=== PATIENT | female | born 1945 ===

== ENCOUNTER → 2021-09-16 11:00 | Outpatient (ROUT) | payer MEDICARE, OTHER, MEDICAID, SELFPAY ==
[2021-09-16 11:21] LABS: Cholesterol 150 mg/dL (140-199); HDL Cholesterol 58 mg/dL (40-60); LDL Cholesterol Calculated 72 mg/dL (<100); Triglycerides 98 mg/dL (35-150)
== END ==
PROVIDERS: Family Provider Family Medicine; PCP Physician Assistant Medical; Visit Provider Emergency Medicine
DX: I50.23 Acute on chronic systolic (congestive) heart failure (principal); I25.5 Ischemic cardiomyopathy; R07.9 Chest pain, unspecified
CPT/HCPCS: 80061

== ENCOUNTER → 2021-10-23 12:58 | Outpatient (CLI) | payer MEDICARE, OTHER, MEDICAID, SELFPAY ==
--- NOTE | 2021-10-23 | DI.ECHO.S_ITS ---
[facility] +---------+ : : [address] : [address] [place] : : : : [id number] : : : : Phone: [phone]+ Echocardiogram Report + + :Name: SHUN OATES Study Date: 10/23/2021 Height: 67 in : :[facility] ReadingLocation: Weight: 109 lb: : Gender: Female BSA: 1.6 m2 : :: 1945 Age: 75 yrs BP: 86/53 mmHg: :Reason For Study: Chronic systolic HF : :Ordering Physician: MONTSE, : :MARIO Performed By: Mena Levine : :Referring: MARIO PICKENS : + + Interpretation Summary The left ventricle is severely dilated. Left ventricular systolic function is severely reduced. The ejection fraction is estimated to be 15-20%. There is severe hypokinesis to akinesis along the apex, inferoseptal, inferior, most of anterior segments. The inferolateral and anterolateral have the most preserved augmentation. Diastolic function could not be accurately assessed due to contradictory data. Right ventricular systolic function is at the lower limits of normal. The right ventricular systolic pressure is estimated to be at least 31 mmHg based on an estimated right atrial pressure of 3 mm Hg. The right ventricle is mildly dilated. The left atrium is moderately dilated. The right atrium is borderline dilated. There is no significant valvular heart disease. The aortic root is normal size. Procedure: A two-dimensional transthoracic echocardiogram with color flow and Doppler was performed. The study quality was technically adequate. There is no prior echocardiogram noted for this patient. The patient was in normal sinus rhythm during the exam. Left Ventricle: The left ventricle is severely dilated. Left ventricular systolic function is severely reduced. The ejection fraction is estimated to be 15-20%. There is severe global hypokinesis of the left ventricle. There is severe hypokinesis to akinesis along the apex, inferoseptal, inferior, most of anterior segments. The inferolateral and anterolateral have the most preserved augmentation. Diastolic function could not be accurately assessed due to contradictory data. Right Ventricle: The right ventricle is mildly dilated. Right ventricular systolic function is at the lower limits of normal. Atria: The left atrium is moderately dilated. The right atrium is borderline dilated. There is no Doppler evidence for an interatrial shunt. Mitral Valve: The mitral valve leaflets appear borderline thickened, but open well. There is mild mitral regurgitation. Aortic Valve: The aortic valve is trileaflet. The aortic valve opens well. No aortic regurgitation is present. Tricuspid Valve: The tricuspid valve is normal in structure and function. There is trace tricuspid regurgitation. The right ventricular systolic pressure is estimated to be at least 31 mmHg based on an estimated right atrial pressure of 3 mm Hg. Pulmonic Valve: The pulmonic valve leaflets are thin and pliable; valve motion is normal. There is a trace or physiologic amount of pulmonic regurgitation. There is no significant valvular heart disease. Great Vessels: The aortic root is normal size. The ascending aorta is normal in size. The pulmonary artery is normal size. The IVC is of normal diameter and collapses greater than 50% with a sniff. This suggests a low right atrial pressure of 3 mm Hg. Pericardium/ Pleura There is no pericardial effusion. MMode/2D Measurements & Calculations LVIDd: 6.3 cm LVOT diam: 2.0 cm LVIDs: 4.6 cm Ao root diam: 3.3 cm FS: 26.4 % asc Aorta Diam: 3.4 cm IVSd: 0.65 cm LVPWd: 0.74 cm LV gunn. diameter/BSA (cm/m^2): 4.0 LV sys. diameter/BSA (cm/m^2): 3.0 LA A2 area: 23.4 cm2 RA long axis: 4.3 cm LA A4 area: 17.9 cm2 RA area: 14.7 cm2 LA length (vol): 4.9 cm RA vol: 42.6 ml LA vol: 73.3 ml RA : 27.3 ml/m2 LA vol index: 46.9 ml/m2 IVC diam: 1.8 cm RVD1 (basal): 4.3 cm TAPSE: 1.8 cm Doppler Measurements & Calculations Ao V2 max: 109.1 cm/sec LVOT Max Yovany: 63.3 cm/sec Ao V2 mean: 74.5 cm/sec LV V1 max P.6 mmHg Ao max P.8 mmHg LV V1 VTI: 13.5 cm Ao mean P.5 mmHg MONSERRAT(I,D): 1.9 cm2 Ao V2 VTI: 22.7 cm MONSERRAT(V,D): 1.9 cm2 sev ratio: 0.59 MONSERRAT indexed to BSA (cm^2/m^2): 1.2 MV E max yovany: 37.6 cm/sec TR max yovany: 265.3 cm/sec MV A max yovany: 94.2 cm/sec TR max P.2 mmHg MV E/A: 0.40 Med Peak E' Yovany: 2.0 cm/sec E/E' med: 18.8 Lat Peak E' Yovany: 1.9 cm/sec E/E' lat: 19.8 E/e' average: 19.3 MV P1/2t: 62.7 msec MV P1/2t max yovany: 37.6 cm/sec SV(LVOT): 43.5 ml MVA(P1/2t): 3.5 cm2 Reading Physician:05:08 PM
== END ==
PROVIDERS: Family Provider Family Medicine; Referring Provider Internal Medicine Cardiovascular Disease; Visit Provider Internal Medicine Cardiovascular Disease
DX: I50.22 Chronic systolic (congestive) heart failure (principal); I34.0 Nonrheumatic mitral (valve) insufficiency
CPT/HCPCS: 93306

== ENCOUNTER → 2021-12-25 10:45 | Outpatient (CLI) | payer MEDICARE, MEDICAID, SELFPAY ==
[2021-12-25 18:45] LABS: Add Manual Diff / Slide Review NO; Basophils Absolute Auto 100 /uL (0-100); Eosinophils Absolute Auto 400 /uL (0-450); Hematocrit 35.3 % (36-46); Hemoglobin 12.1 g/dL (12.0-16.0); Lymphocytes Absolute Auto 2300 /uL (1100-4500); Lymphocytes Percent Auto 30.4 % (25-40); Mean Corpuscular HGB Conc 34.2 % (30-36); Mean Corpuscular Hemoglobin 32.4 PG (26-34); Mean Corpuscular Volume 94.8 fL (80-100); Monocytes Absolute Auto 700 /uL (0-900); Monocytes Percent Auto 8.9 % (3-14); Neutrophils Absolute Auto 4100 /uL (1500-7000); Neutrophils Percent Auto 54.7 % (50-75); Platelet Count 207 X10^3/uL (150-400); Red Blood Cell Count 3.72 X10^6/uL (4.0-5.2); Red Cell Distribution Width 14.1 % (11.6-14.8); White Blood Cell Count 7.5 X10^3/uL (4.5-11.0)
[2021-12-25 19:02] LABS: Alanine Aminotransferase 30 IU/L (<35); Albumin 4.2 g/dL (3.5-5.0); Albumin Globulin Ratio 1.4 (1.0-2.8); Alkaline Phosphatase 74 U/L (38-126); Aspartate Aminotransferase 33 IU/L (14-36); BUN Creatinine Ratio 31.1 (6-22); Bilirubin Total 0.7 mg/dL (0.2-1.3); Blood Urea Nitrogen 38 mg/dL (7-17); Calcium 9.2 mg/dL (8.4-10.2); Carbon Dioxide 24 mmol/L (22-32); Chloride 104 mmol/L (98-107); Cholesterol 137 mg/dL (140-199); Estimated Glomerular Filt Rate 45 mL/min (>60); Globulin 2.9 g/dL (1.7-4.1); Glucose 100 mg/dL (80-110); HDL Cholesterol 63 mg/dL (40-60); HEMOLYSIS < 15 (0-50); LDL Cholesterol Calculated 53 mg/dL (<100); Sodium 137 mmol/L (137-145); Total Protein 7.1 g/dL (6.3-8.2); Triglycerides 107 mg/dL (35-150)
[2021-12-25 19:09] LABS: NT-proBNP (BNP-Adult 18+) 3740 pg/mL (<450)
[2021-12-25 19:18] LABS: Potassium 5.4 mmol/L (3.4-5.1)
== END ==
PROVIDERS: Family Provider Family Medicine; PCP Family Medicine; Visit Provider Family Medicine
DX: E78.2 Mixed hyperlipidemia (principal); I11.0 Hypertensive heart disease with heart failure; I50.9 Heart failure, unspecified; I25.2 Old myocardial infarction; Z79.891 Long term (current) use of opiate analgesic; M79.604 Pain in right leg
CPT/HCPCS: 80053; 80061; 83880; 85025

== ENCOUNTER → 2022-02-17 10:43 | Outpatient (CLI) | payer MEDICARE, MEDICAID, SELFPAY ==
[2022-02-17 20:55] LABS: NT-proBNP (BNP-Adult 18+) 3180 pg/mL (<450)
== END ==
PROVIDERS: Family Provider Family Medicine; PCP Family Medicine; Visit Provider Family Medicine
DX: I50.9 Heart failure, unspecified (principal)
CPT/HCPCS: 83880

== ENCOUNTER 2022-05-25 18:39 | Emergency (ER) | payer MEDICARE, MEDICAID, SELFPAY ==
[2022-05-25 19:00] VITALS: BP 112/60; PULSE 87; RESP 18; TEMP 35.7; O2SAT 98; BMI 14.2
[2022-05-25 20:46] LABS: Add Manual Diff / Slide Review NO; Basophils Absolute Auto 100 /uL (0-100); Basophils Percent Auto 1.1 % (0-2); Eosinophils Absolute Auto 100 /uL (0-450); Eosinophils Percent Auto 0.8 % (2-4); Hemoglobin 12.5 g/dL (12.0-16.0); Lymphocytes Absolute Auto 2100 /uL (1100-4500); Lymphocytes Percent Auto 20.5 % (25-40); Mean Corpuscular HGB Conc 33.9 % (30-36); Mean Corpuscular Hemoglobin 33.5 PG (26-34); Monocytes Absolute Auto 700 /uL (0-900); Neutrophils Absolute Auto 7300 /uL (1500-7000); Neutrophils Percent Auto 70.6 % (50-75); Platelet Count 339 X10^3/uL (150-400); Red Blood Cell Count 3.73 X10^6/uL (4.0-5.2); Red Cell Distribution Width 13.9 % (11.6-14.8); White Blood Cell Count 10.3 X10^3/uL (4.5-11.0)
[2022-05-25 20:58] LABS: Lactate (Lactic Acid) 1.7 mmol/L (0.7-2.1)
[2022-05-25 20:59] LABS: Alanine Aminotransferase 21 IU/L (<35); Albumin 4.6 g/dL (3.5-5.0); Albumin Globulin Ratio 1.3 (1.0-2.8); Alkaline Phosphatase 61 U/L (38-126); Aspartate Aminotransferase 32 IU/L (14-36); BUN Creatinine Ratio 29.1 (6-22); Bilirubin Total 0.6 mg/dL (0.2-1.3); Blood Urea Nitrogen 60 mg/dL (7-17); Calcium 9.2 mg/dL (8.4-10.2); Carbon Dioxide 18 mmol/L (22-32); Chloride 103 mmol/L (98-107); Estimated Glomerular Filt Rate 24 mL/min (>60); Globulin 3.5 g/dL (1.7-4.1); Glucose 98 mg/dL (80-110); HEMOLYSIS 73 (0-50); Lipase 238 U/L (23-300); Potassium 4.2 mmol/L (3.4-5.1); Sodium 136 mmol/L (137-145); Total Protein 8.1 g/dL (6.3-8.2)
[2022-05-26] VITALS (15 sets, daily range): BP systolic 85–117; BP diastolic 49–59; PULSE 81–97; RESP 16; TEMP 36.7; O2SAT 96–100
[2022-05-26] MEDS: LACTATED RINGERS 1,000 ML 1000 ML IV ×2 (02:35→05:09)
--- NOTE | 2022-05-26 02:40 | ED.WEAKNESS ---
HPI - Weakness <Keiko Tony, DO - Last Filed: 05/27/22 03:10> General Chief complaint: Weakness Stated complaint: Diarrhea X 2 weeks, weakness Time Seen by Provider: 05/26/22 02:31 Source: patient Mode of arrival: Wheelchair History of Present Illness HPI Narrative: Patient is a 76-year-old female history of coronary artery disease with stents a presenting today with generalized weakness and diarrhea for the last 19 days. Says she really has had significant decreased appetite. She has no nausea or vomiting no real stomach pain. She has not been on antibiotics. She states that she has 1 episode of diarrhea daily. Denies any chest pain palpitations dizziness passing out fever or chills. Related Data Home Medications Medication Instructions Recorded Confirmed aspirin 81 mg tablet,delayed 81 mg PO DAILY 11/20/21 11/20/21 release (Adult Low Dose Aspirin) melatonin 10 mg capsule 20 mg PO DAILY 11/20/21 11/20/21 Previous Rx's Medication Instructions Recorded albuterol sulfate 90 mcg/actuation 2 puff inhalation Q4H PRN 11/20/21 aerosol inhaler (Ventolin HFA) shortness of breath or wheezing #8.5 grams atorvastatin 40 mg tablet 40 mg PO BEDTIME #90 tabs 12/04/21 clopidogrel 75 mg tablet 75 mg PO DAILY #90 tabs 12/07/21 metoprolol tartrate 25 mg tablet 25 mg PO DAILY #90 tabs 12/07/21 ferrous sulfate 325 mg (65 mg 325 mg PO DAILY anemia #90 tabs 12/18/21 iron) tablet,delayed release albuterol sulfate 90 mcg/actuation 2 puff inhalation Q4-6H PRN 01/29/22 aerosol inhaler (Ventolin HFA) shortness of breath or wheezing #8.5 grams lisinopril 2.5 mg tablet 2.5 mg PO DAILY Hypertension #90 02/15/22 tabs carvedilol 12.5 mg tablet 12.5 mg PO BID #120 tabs 03/18/22 fluoxetine 40 mg capsule 40 mg PO DAILY #90 caps 03/19/22 trazodone 50 mg tablet See Rx Instructions .Route 03/23/22 .COMPLEX #60 tabs spironolactone 25 mg tablet See Rx Instructions .Route 04/08/22 .COMPLEX #60 tabs cilostazol 50 mg tablet 50 mg PO BID PVD #60 tabs 04/22/22 Allergies Allergy/AdvReac Type Severity Reaction Status Date / Time Penicillins [PENICILLINS] Allergy Unknown Verified 11/20/21 09:24 Review of Systems <Keiko Jimenez DO - Last Filed: 05/27/22 03:10> Review of Systems Narrative: GENERAL: Denies chills, fatigue, malaise, fever, sweats, travel HEENT: Denies sinus pain, ear pain, sore throat, difficulty swallowing, neck pain RESPIRATORY: Denies dyspnea, cough, wheezing, hemoptysis, sputum. CARDIOVASCULAR: Denies chest pain, palpitations, orthopnea, edema GASTROINTESTINAL: See HPI : Denies dysuria, frequency, incontinence, hematuria, urinary retention, flank pain. MUSCULOSKELETAL: Denies weakness, joint pain, or bony pain SKIN: No rash, no erythema, no pruritus NEUROLOGIC: Denies weakness, dizziness, headache, numbness, change in speech, confusion PSYCHIATRIC: No concerning psychosocial issues. 12 point review of systems is negative except for those stated above and HPI Patient History <Keiko Jimenez DO - Last Filed: 05/27/22 03:10> Social History Smoking Status: Current every day smoker Smoking Status: Current every day smoker Substance Use Type: does not use Exam <Keiko Jimenez DO - Last Filed: 05/27/22 03:10> Initial Vital Signs Initial Vital Signs: Vital Signs Temperature 96.3 F L 05/25/22 19:00 Pulse Rate 87 05/25/22 19:00 Respiratory Rate 18 05/25/22 19:00 Blood Pressure 112/60 05/25/22 19:00 Pulse Oximetry 98 05/25/22 19:00 Oxygen Delivery Method 05/25/22 19:00 GENERAL: Alert thin 76-year-old female no acute distress HEENT: Head atraumatic,EOMI, pupils reactive, face symmetric, moist mucous membranes CARDIOVASCULAR: Regular rate and rhythm without murmurs, rubs or gallops. RESPIRATORY: Breath sounds equal bilaterally, no wheezes rales or rhonchi. ABDOMEN: Soft, nontender. Normoactive bowel sounds all 4 quadrants. No guarding or rebound. EXTREMITIES: Normal range of motion, no clubbing or edema. Neurovascularly intact NEUROLOGICAL: Alert and oriented x4.Normal gait and speech. SKIN: Warm, dry, no laceration, no petechiae, no rashes or lesions. <Adelso Molina MD - Last Filed: 05/26/22 15:44> Initial Vital Signs Initial Vital Signs: Vital Signs Temperature 96.3 F L 05/25/22 19:00 Pulse Rate 87 05/25/22 19:00 Respiratory Rate 18 05/25/22 19:00 Blood Pressure 112/60 05/25/22 19:00 Pulse Oximetry 98 05/25/22 19:00 Oxygen Delivery Method 05/25/22 19:00 Course <Keiko Jimenez DO - Last Filed: 05/27/22 03:10> Orders Ordered: Discontinued Medications Acetaminophen (Acetaminophen 325 Mg Tablet) 650 mg PO NOW ONE Stop: 05/26/22 16:19 Last Admin: 05/26/22 16:22 Dose: 650 mg Documented By: CAROLINE Lactated Ringer's (Lactated Ringers) 1,000 mls @ 1,000 mls/hr IV BOLUS ONE Stop: 05/26/22 03:21 Last Infusion: 05/26/22 05:04 Dose: 0 mls/hr Documented By: Admin: 05/26/22 02:35 Dose: 1,000 mls/hr Documented By: MICHELLE Lactated Ringer's (Lactated Ringers) 1,000 mls @ 1,000 mls/hr IV BOLUS ONE Stop: 05/26/22 06:04 Last Infusion: 05/26/22 15:09 Dose: 0 mls/hr Documented By: Admin: 05/26/22 05:09 Dose: 1,000 mls/hr Documented By: SHANNAN Sodium Chloride (Normal Saline 0.9%) 1,000 mls @ 1,000 mls/hr IV BOLUS ONE Stop: 05/26/22 16:05 Last Infusion: 05/26/22 16:18 Dose: 0 mls/hr Documented By: Admin: 05/26/22 15:07 Dose: 1,000 mls/hr Documented By: MANNY Vital Signs Vital signs: Vital Signs - 8 hr 05/26/22 09:00 05/26/22 10:00 05/26/22 11:00 Pulse Rate 85 81 96 H Blood Pressure 117/59 L Pulse Oximetry 97 97 98 Oxygen Delivery Method Room Air Room Air Room Air 05/26/22 12:23 05/26/22 12:30 05/26/22 12:57 Pulse Rate 92 H 92 H 95 H Blood Pressure Pulse Oximetry 100 99 99 Oxygen Delivery Method 05/26/22 12:58 05/26/22 13:00 05/26/22 13:17 Pulse Rate 89 89 Blood Pressure 90/49 L 93/50 L Pulse Oximetry 97 Oxygen Delivery Method 05/26/22 13:30 05/26/22 14:00 05/26/22 14:30 Pulse Rate 97 H 94 H 94 H Blood Pressure Pulse Oximetry 97 97 97 Oxygen Delivery Method 05/26/22 14:53 05/26/22 14:53 Pulse Rate 90 Blood Pressure 85/50 L Pulse Oximetry 96 Oxygen Delivery Method <Adelso Molina MD - Last Filed: 05/26/22 15:44> Course Course Narrative: The patient has been IV hydrated. She was able to eat. It took several hours, a stool sample was eventually obtained. GI panel is negative, there is no evidence of acute infection. She is advised to consume a regular diet. She is advised to follow up with her PCM in the next few days. The patient requested I look at her left foot. Her left great toe has been sore for weeks. She is slight erythema, with mature eschar formation. Scabs are starting to peel away. She has a resolving blister. There is no cellulitis.- Burt JAMIL.05/26/22@3:35PM. Orders Ordered: Discontinued Medications Acetaminophen (Acetaminophen 325 Mg Tablet) 650 mg PO NOW ONE Stop: 05/26/22 16:19 Last Admin: 05/26/22 16:22 Dose: 650 mg Documented By: CAROLINE Lactated Ringer's (Lactated Ringers) 1,000 mls @ 1,000 mls/hr IV BOLUS ONE Stop: 05/26/22 03:21 Last Infusion: 05/26/22 05:04 Dose: 0 mls/hr Documented By: Admin: 05/26/22 02:35 Dose: 1,000 mls/hr Documented By: MICHELLE Lactated Ringer's (Lactated Ringers) 1,000 mls @ 1,000 mls/hr IV BOLUS ONE Stop: 05/26/22 06:04 Last Infusion: 05/26/22 15:09 Dose: 0 mls/hr Documented By: Admin: 05/26/22 05:09 Dose: 1,000 mls/hr Documented By: SHANNAN Sodium Chloride (Normal Saline 0.9%) 1,000 mls @ 1,000 mls/hr IV BOLUS ONE Stop: 05/26/22 16:05 Last Infusion: 05/26/22 16:18 Dose: 0 mls/hr Documented By: Admin: 05/26/22 15:07 Dose: 1,000 mls/hr Documented By: MANNY Vital Signs Vital signs: Vital Signs - 8 hr 05/26/22 09:00 05/26/22 10:00 05/26/22 11:00 Pulse Rate 85 81 96 H Blood Pressure 117/59 L Pulse Oximetry 97 97 98 Oxygen Delivery Method Room Air Room Air Room Air 05/26/22 12:23 05/26/22 12:30 05/26/22 12:57 Pulse Rate 92 H 92 H 95 H Blood Pressure Pulse Oximetry 100 99 99 Oxygen Delivery Method 05/26/22 12:58 05/26/22 13:00 05/26/22 13:17 Pulse Rate 89 89 Blood Pressure 90/49 L 93/50 L Pulse Oximetry 97 Oxygen Delivery Method 05/26/22 13:30 05/26/22 14:00 05/26/22 14:30 Pulse Rate 97 H 94 H 94 H Blood Pressure Pulse Oximetry 97 97 97 Oxygen Delivery Method 05/26/22 14:53 05/26/22 14:53 Pulse Rate 90 Blood Pressure 85/50 L Pulse Oximetry 96 Oxygen Delivery Method MDM - Weakness <Keiko Jimenez DO - Last Filed: 05/27/22 03:10> Lab Data Result diagrams: 05/25/22 20:32 05/26/22 05:23 Labs: Lab Results 05/25/22 05/25/22 05/25/22 Range/Units 20:32 20:32 20:32 WBC 10.3 (4.5-11.0) X10^3/uL RBC 3.73 L (4.0-5.2) X10^6/uL Hgb 12.5 (12.0-16.0) g/dL Hct 37.0 (36-46) % MCV 99.0 (80-100) fL MCH 33.5 (26-34) PG MCHC 33.9 (30-36) % RDW 13.9 (11.6-14.8) % Plt Count 339 (150-400) X10^3/uL Neut % (Auto) 70.6 (50-75) % Lymph % (Auto) 20.5 L (25-40) % [place] % (Auto) 7.0 (3-14) % Eos % (Auto) 0.8 L (2-4) % Baso % (Auto) 1.1 (0-2) % Neut # (Auto) 7300 H (4722-6487) /uL Lymph # (Auto) 2100 (4661-1427) /uL [place] # (Auto) 700 (0-900) /uL Eos # (Auto) 100 (0-450) /uL Baso # (Auto) 100 (0-100) /uL Sodium 136 L (137-145) mmol/L Potassium 4.2 (3.4-5.1) mmol/L Chloride 103 (98-107) mmol/L Carbon Dioxide 18 L (22-32) mmol/L BUN 60 H (7-17) mg/dL Creatinine 2.06 H (0.52-1.04) mg/dL Estimated GFR 24 L (>60) mL/min BUN/Creatinine Ratio 29.1 H (6-22) Glucose 98 (80-110) mg/dL Lactate 1.7 (0.7-2.1) mmol/L Calcium 9.2 (8.4-10.2) mg/dL Total Bilirubin 0.6 (0.2-1.3) mg/dL AST 32 (14-36) IU/L ALT 21 (<35) IU/L Alkaline Phosphatase 61 (38-126) U/L Total Protein 8.1 (6.3-8.2) g/dL Albumin 4.6 (3.5-5.0) g/dL Globulin 3.5 (1.7-4.1) g/dL Albumin/Globulin Ratio 1.3 (1.0-2.8) Lipase 238 (23-300) U/L Stl C. cayetanensis PCR (Not Detect) Stool Rotavirus (PCR) (Not Detect) Stool Adenovirus (PCR) (Not Detect) Stool Astrovirus (PCR) (Not Detect) Stool Cryptosporidium PCR (Not Detect) Stl E.coli Shiga Tox PCR (Not Detect) St Sh/Enteroin Ecoli PCR (Not Detect) Stool E coli O157 PCR (Not Detect) Stl Enterotoxigenic E PCR (Not Detect) Stool EPEC (PCR) (Not Detect) Stl E. histolytica PCR (Not Detect) Stool Giardia Lamblia PCR (Not Detect) Stool Sapovirus (PCR) (Not Detect) Stl P. shigelloides PCR (Not Detect) St Y.enterocolitica PCR (Not Detect) Stool Vibrio (PCR) (Not Detect) Stl Vibrio cholerae PCR (Not Detect) Stl Enteroaggr Ecoli PCR (Not Detect) Stl Norovirus GI/GII PCR (Not Detect) Campylobacter (PCR) (Not Detect) C. difficile Tox (PCR) (Not Detect) SARS-CoV-2 (PCR) (Negative) Salmonella (PCR) (Not Detect) 05/26/22 05/26/22 05/26/22 Range/Units 04:07 05:23 13:05 WBC (4.5-11.0) X10^3/uL RBC (4.0-5.2) X10^6/uL Hgb (12.0-16.0) g/dL Hct (36-46) % MCV (80-100) fL MCH (26-34) PG MCHC (30-36) % RDW (11.6-14.8) % Plt Count (150-400) X10^3/uL Neut % (Auto) (50-75) % Lymph % (Auto) (25-40) % [place] % (Auto) (3-14) % Eos % (Auto) (2-4) % Baso % (Auto) (0-2) % Neut # (Auto) (3536-8013) /uL Lymph # (Auto) (6070-7477) /uL [place] # (Auto) (0-900) /uL Eos # (Auto) (0-450) /uL Baso # (Auto) (0-100) /uL Sodium 137 (137-145) mmol/L Potassium 3.5 (3.4-5.1) mmol/L Chloride 107 (98-107) mmol/L Carbon Dioxide 20 L (22-32) mmol/L BUN 58 H (7-17) mg/dL Creatinine 1.86 H (0.52-1.04) mg/dL Estimated GFR 27 L (>60) mL/min BUN/Creatinine Ratio 31.2 H (6-22) Glucose 93 (80-110) mg/dL Lactate (0.7-2.1) mmol/L Calcium 8.7 (8.4-10.2) mg/dL Total Bilirubin (0.2-1.3) mg/dL AST (14-36) IU/L ALT (<35) IU/L Alkaline Phosphatase (38-126) U/L Total Protein (6.3-8.2) g/dL Albumin (3.5-5.0) g/dL Globulin (1.7-4.1) g/dL Albumin/Globulin Ratio (1.0-2.8) Lipase (23-300) U/L Stl C. cayetanensis PCR Not detected (Not Detect) Stool Rotavirus (PCR) Not detected (Not Detect) Stool Adenovirus (PCR) Not detected (Not Detect) Stool Astrovirus (PCR) Not detected (Not Detect) Stool Cryptosporidium PCR Not detected (Not Detect) Stl E.coli Shiga Tox PCR Not detected (Not Detect) St Sh/Enteroin Ecoli PCR Not detected (Not Detect) Stool E coli O157 PCR Not detected (Not Detect) Stl Enterotoxigenic E PCR Not detected (Not Detect) Stool EPEC (PCR) Not detected (Not Detect) Stl E. histolytica PCR Not detected (Not Detect) Stool Giardia Lamblia PCR Not detected (Not Detect) Stool Sapovirus (PCR) Not detected (Not Detect) Stl P. shigelloides PCR Not detected (Not Detect) St Y.enterocolitica PCR Not detected (Not Detect) Stool Vibrio (PCR) Not detected (Not Detect) Stl Vibrio cholerae PCR Not detected (Not Detect) Stl Enteroaggr Ecoli PCR Not detected (Not Detect) Stl Norovirus GI/GII PCR Not detected (Not Detect) Campylobacter (PCR) Not detected (Not Detect) C. difficile Tox (PCR) Not detected (Not Detect) SARS-CoV-2 (PCR) Negative (Negative) Salmonella (PCR) Not detected (Not Detect) MDM Narrative Medical decision making narrative: Spoke hospitalist, Rosalino, about admitting for dehydration and acute kidney injury. Recommend repeating blood work and continue IV hydration. Blood work actually improved she is tolerating oral fluids. She states that she had an episode of diarrhea while in the ED sitting on the gurney in her depends. She said that she was cold and lazy and she did not want to get up. She is tolerating fluids at this time blood work is improving she has had a 2 L of IV fluids after the repeat blood work. Encouraged p.o. intake She has no leukocytosis or fever. His she has not recently been on antibiotics still possible it may be community-acquired C diff. patient signed out to Dr. Molina awaiting GI panel <Adelso Molina MD - Last Filed: 05/26/22 15:44> Lab Data Labs: Lab Results 05/25/22 05/25/22 05/25/22 Range/Units 20:32 20:32 20:32 WBC 10.3 (4.5-11.0) X10^3/uL RBC 3.73 L (4.0-5.2) X10^6/uL Hgb 12.5 (12.0-16.0) g/dL Hct 37.0 (36-46) % MCV 99.0 (80-100) fL MCH 33.5 (26-34) PG MCHC 33.9 (30-36) % RDW 13.9 (11.6-14.8) % Plt Count 339 (150-400) X10^3/uL Neut % (Auto) 70.6 (50-75) % Lymph % (Auto) 20.5 L (25-40) % [place] % (Auto) 7.0 (3-14) % Eos % (Auto) 0.8 L (2-4) % Baso % (Auto) 1.1 (0-2) % Neut # (Auto) 7300 H (0259-2411) /uL Lymph # (Auto) 2100 (5266-3145) /uL [place] # (Auto) 700 (0-900) /uL Eos # (Auto) 100 (0-450) /uL Baso # (Auto) 100 (0-100) /uL Sodium 136 L (137-145) mmol/L Potassium 4.2 (3.4-5.1) mmol/L Chloride 103 (98-107) mmol/L Carbon Dioxide 18 L (22-32) mmol/L BUN 60 H (7-17) mg/dL Creatinine 2.06 H (0.52-1.04) mg/dL Estimated GFR 24 L (>60) mL/min BUN/Creatinine Ratio 29.1 H (6-22) Glucose 98 (80-110) mg/dL Lactate 1.7 (0.7-2.1) mmol/L Calcium 9.2 (8.4-10.2) mg/dL Total Bilirubin 0.6 (0.2-1.3) mg/dL AST 32 (14-36) IU/L ALT 21 (<35) IU/L Alkaline Phosphatase 61 (38-126) U/L Total Protein 8.1 (6.3-8.2) g/dL Albumin 4.6 (3.5-5.0) g/dL Globulin 3.5 (1.7-4.1) g/dL Albumin/Globulin Ratio 1.3 (1.0-2.8) Lipase 238 (23-300) U/L Stl C. cayetanensis PCR (Not Detect) Stool Rotavirus (PCR) (Not Detect) Stool Adenovirus (PCR) (Not Detect) Stool Astrovirus (PCR) (Not Detect) Stool Cryptosporidium PCR (Not Detect) Stl E.coli Shiga Tox PCR (Not Detect) St Sh/Enteroin Ecoli PCR (Not Detect) Stool E coli O157 PCR (Not Detect) Stl Enterotoxigenic E PCR (Not Detect) Stool EPEC (PCR) (Not Detect) Stl E. histolytica PCR (Not Detect) Stool Giardia Lamblia PCR (Not Detect) Stool Sapovirus (PCR) (Not Detect) Stl P. shigelloides PCR (Not Detect) St Y.enterocolitica PCR (Not Detect) Stool Vibrio (PCR) (Not Detect) Stl Vibrio cholerae PCR (Not Detect) Stl Enteroaggr Ecoli PCR (Not Detect) Stl Norovirus GI/GII PCR (Not Detect) Campylobacter (PCR) (Not Detect) C. difficile Tox (PCR) (Not Detect) SARS-CoV-2 (PCR) (Negative) Salmonella (PCR) (Not Detect) 05/26/22 05/26/22 05/26/22 Range/Units 04:07 05:23 13:05 WBC (4.5-11.0) X10^3/uL RBC (4.0-5.2) X10^6/uL Hgb (12.0-16.0) g/dL Hct (36-46) % MCV (80-100) fL MCH (26-34) PG MCHC (30-36) % RDW (11.6-14.8) % Plt Count (150-400) X10^3/uL Neut % (Auto) (50-75) % Lymph % (Auto) (25-40) % [place] % (Auto) (3-14) % Eos % (Auto) (2-4) % Baso % (Auto) (0-2) % Neut # (Auto) (6287-5741) /uL Lymph # (Auto) (2017-2373) /uL [place] # (Auto) (0-900) /uL Eos # (Auto) (0-450) /uL Baso # (Auto) (0-100) /uL Sodium 137 (137-145) mmol/L Potassium 3.5 (3.4-5.1) mmol/L Chloride 107 (98-107) mmol/L Carbon Dioxide 20 L (22-32) mmol/L BUN 58 H (7-17) mg/dL Creatinine 1.86 H (0.52-1.04) mg/dL Estimated GFR 27 L (>60) mL/min BUN/Creatinine Ratio 31.2 H (6-22) Glucose 93 (80-110) mg/dL Lactate (0.7-2.1) mmol/L Calcium 8.7 (8.4-10.2) mg/dL Total Bilirubin (0.2-1.3) mg/dL AST (14-36) IU/L ALT (<35) IU/L Alkaline Phosphatase (38-126) U/L Total Protein (6.3-8.2) g/dL Albumin (3.5-5.0) g/dL Globulin (1.7-4.1) g/dL Albumin/Globulin Ratio (1.0-2.8) Lipase (23-300) U/L Stl C. cayetanensis PCR Not detected (Not Detect) Stool Rotavirus (PCR) Not detected (Not Detect) Stool Adenovirus (PCR) Not detected (Not Detect) Stool Astrovirus (PCR) Not detected (Not Detect) Stool Cryptosporidium PCR Not detected (Not Detect) Stl E.coli Shiga Tox PCR Not detected (Not Detect) St Sh/Enteroin Ecoli PCR Not detected (Not Detect) Stool E coli O157 PCR Not detected (Not Detect) Stl Enterotoxigenic E PCR Not detected (Not Detect) Stool EPEC (PCR) Not detected (Not Detect) Stl E. histolytica PCR Not detected (Not Detect) Stool Giardia Lamblia PCR Not detected (Not Detect) Stool Sapovirus (PCR) Not detected (Not Detect) Stl P. shigelloides PCR Not detected (Not Detect) St Y.enterocolitica PCR Not detected (Not Detect) Stool Vibrio (PCR) Not detected (Not Detect) Stl Vibrio cholerae PCR Not detected (Not Detect) Stl Enteroaggr Ecoli PCR Not detected (Not Detect) Stl Norovirus GI/GII PCR Not detected (Not Detect) Campylobacter (PCR) Not detected (Not Detect) C. difficile Tox (PCR) Not detected (Not Detect) SARS-CoV-2 (PCR) Negative (Negative) Salmonella (PCR) Not detected (Not Detect) Discharge Plan Departure Patient Disposition: Home Clinical Impression: Acute kidney injury, Diarrhea, Dehydration, Blister of foot, left Instructions: Diarrhea, DI for Dehydration -- Adult Activity Restrictions/Additional Instructions: *You have been diagnosed with kidney injury, dehydration * I would recommend drinking plenty of water, you should be on a good diet, high quality foods. The stool studies were negative for acute infection. Regarding your left foot, you are doing a good job. Be sure you bathe the foot at least daily with warm water. Recheck with your doctor in 2-3 weeks if not improved further. *Follow up with your primary care provider in 2-3 days or call [phone] *Return to ER if you should have dizziness lightheadedness, worsening diarrhea or any new, worsening or concerning symptoms Prescriptions: No Action atorvastatin 40 mg tablet 40 mg PO BEDTIME Qty: 90 3RF metoprolol tartrate 25 mg tablet 25 mg PO DAILY Qty: 90 1RF clopidogrel 75 mg tablet 75 mg PO DAILY Qty: 90 1RF albuterol sulfate [Ventolin HFA] 90 mcg/actuation HFA aerosol inhaler 2 puff inhalation Q4-6H PRN (Reason: shortness of breath or wheezing) Qty: 8.5 0RF lisinopril 2.5 mg tablet 2.5 mg PO DAILY Qty: 90 0RF Rx Instructions: Take 1 tablet daily carvedilol 12.5 mg tablet 12.5 mg PO BID Qty: 120 2RF Rx Instructions: must administer with a meal/food fluoxetine 40 mg capsule 40 mg PO DAILY Qty: 90 1RF trazodone 50 mg tablet See Rx Instructions .ROUTE .COMPLEX Qty: 60 2RF Dose Instruction: TAKE ONE TABLET BY MOUTH AT BEDTIME NEEDED FOR INSOMNIA Rx Instructions: TAKE ONE TABLET BY MOUTH AT BEDTIME NEEDED FOR INSOMNIA spironolactone 25 mg tablet See Rx Instructions .ROUTE .COMPLEX Qty: 60 0RF Dose Instruction: TAKE ONE TABLET BY MOUTH EVERY DAY FOR CONGESTIVE HEART DISEASE Rx Instructions: TAKE ONE TABLET BY MOUTH EVERY DAY FOR CONGESTIVE HEART DISEASE ferrous sulfate 325 mg (65 mg iron) tablet,delayed release (DR/EC) 325 mg PO DAILY Qty: 90 1RF triamcinolone acetonide [Kenalog] 40 mg/mL suspension 80 mg intrabursal ONCE Qty: 2 0RF melatonin 10 mg capsule 20 mg PO DAILY aspirin [Adult Low Dose Aspirin] 81 mg tablet,delayed release (DR/EC) 81 mg PO DAILY albuterol sulfate [Ventolin HFA] 90 mcg/actuation HFA aerosol inhaler 2 puff inhalation Q4H PRN (Reason: shortness of breath or wheezing) Qty: 8.5 5RF cilostazol 50 mg tablet 50 mg PO BID Qty: 60 3RF Referrals: Adelso Galeano MD [Primary Care Provider] - Visit Report Forms: Patient Portal/API
[2022-05-26 05:07] LABS: COVID19 - ADMIT (NP swab/PCR) Negative (Negative)
[2022-05-26 05:49] LABS: BUN Creatinine Ratio 31.2 (6-22); Blood Urea Nitrogen 58 mg/dL (7-17); Calcium 8.7 mg/dL (8.4-10.2); Carbon Dioxide 20 mmol/L (22-32); Chloride 107 mmol/L (98-107); Estimated Glomerular Filt Rate 27 mL/min (>60); Glucose 93 mg/dL (80-110); HEMOLYSIS < 15 (0-50); Potassium 3.5 mmol/L (3.4-5.1); Sodium 137 mmol/L (137-145)
[2022-05-26] MEDS: SODIUM CHLORIDE 0.9% 1,000 ML 1000 ML IV (15:07)
[2022-05-26 15:08] LABS: Adenovirus F 40/41 Not Detected (Not Detect); Astrovirus Not Detected (Not Detect); Campylobacter Not Detected (Not Detect); Clostridium difficile toxin AB Not Detected (Not Detect); Cryptosporidium Not Detected (Not Detect); Cyclospora cayetanensis Not Detected (Not Detect); Entamoeba histolytica Not Detected (Not Detect); Enteroaggregative E.coli Not Detected (Not Detect); Enteropathogenic E.coli Not Detected (Not Detect); Enterotoxigenic E.coli It/st Not Detected (Not Detect); Giardia lamblia Not Detected (Not Detect); Norovirus GI/GII Not Detected (Not Detect); Plesiomonsa shigelloides Not Detected (Not Detect); Rotavirus A Not Detected (Not Detect); Salmonella Not Detected (Not Detect); Sapovirus Not Detected (Not Detect); Shiga-like toxin-prod E.coli Not Detected (Not Detect); Shigella/Enteroinvasive E.coli Not Detected (Not Detect); Vibrio Not Detected (Not Detect); Vibrio cholerae Not Detected (Not Detect); Yersinia enterocolitica Not Detected (Not Detect)
--- NOTE | 2022-05-26 15:08 | PC.NURSE ---
BP 85/50, pt denies symptoms. Provider notified, order received for NS bolus.
[2022-05-26] MEDS: ACETAMINOPHEN 325 MG TABLET 650 MG PO (16:22)
== END 2022-05-26 16:29 | disposition home or self-care (01) ==
PROVIDERS: Emergency Medicine; Emergency Provider Emergency Medicine; Family Provider Family Medicine; PCP Family Medicine
DX: N17.9 Acute kidney failure, unspecified (principal); R19.7 Diarrhea, unspecified; E86.0 Dehydration; S90.822A Blister (nonthermal), left foot, initial encounter; Z20.822 Contact with and (suspected) exposure to COVID-19
CPT/HCPCS: 36415; 80048; 80053; 83605; 83690; 85018; 85025; 87507; 87635; 96360; 96361; 99284; C9803

== ENCOUNTER → 2022-06-01 13:21 | Outpatient (CLI) | payer MEDICARE, MEDICAID, SELFPAY ==
[2022-06-01 19:27] LABS: Add Manual Diff / Slide Review NO; Basophils Absolute Auto 100 /uL (0-100); Basophils Percent Auto 0.9 % (0-2); Eosinophils Absolute Auto 200 /uL (0-450); Eosinophils Percent Auto 2.5 % (2-4); Hematocrit 33.7 % (36-46); Hemoglobin 11.3 g/dL (12.0-16.0); Lymphocytes Absolute Auto 1100 /uL (1100-4500); Lymphocytes Percent Auto 16.8 % (25-40); Mean Corpuscular HGB Conc 33.7 % (30-36); Mean Corpuscular Hemoglobin 33.9 PG (26-34); Mean Corpuscular Volume 100.7 fL (80-100); Monocytes Absolute Auto 600 /uL (0-900); Monocytes Percent Auto 9.2 % (3-14); Neutrophils Absolute Auto 4800 /uL (1500-7000); Neutrophils Percent Auto 70.6 % (50-75); Platelet Count 266 X10^3/uL (150-400); Red Blood Cell Count 3.35 X10^6/uL (4.0-5.2); Red Cell Distribution Width 14.5 % (11.6-14.8); White Blood Cell Count 6.8 X10^3/uL (4.5-11.0)
[2022-06-01 19:58] LABS: Alanine Aminotransferase 22 IU/L (<35); Albumin 3.7 g/dL (3.5-5.0); Albumin Globulin Ratio 1.4 (1.0-2.8); Alkaline Phosphatase 62 U/L (38-126); Aspartate Aminotransferase 26 IU/L (14-36); BUN Creatinine Ratio 15.6 (6-22); Bilirubin Total 0.2 mg/dL (0.2-1.3); Blood Urea Nitrogen 20 mg/dL (7-17); Calcium 8.4 mg/dL (8.4-10.2); Carbon Dioxide 20 mmol/L (22-32); Chloride 114 mmol/L (98-107); Estimated Glomerular Filt Rate 43 mL/min (>60); Globulin 2.6 g/dL (1.7-4.1); Glucose 107 mg/dL (80-110); HEMOLYSIS < 15 (0-50); Lipase 221 U/L (23-300); Potassium 3.8 mmol/L (3.4-5.1); Sodium 143 mmol/L (137-145); Total Protein 6.3 g/dL (6.3-8.2)
[2022-06-01 20:08] LABS: TSH w/ Reflex to FT4 0.99 uIU/mL (0.47-4.68)
[2022-06-03 13:44] LABS: Fecal Immunochemical Test Negative (Negative)
== END ==
PROVIDERS: Family Provider Family Medicine; PCP Family Medicine; Visit Provider Physician Assistant
DX: E78.2 Mixed hyperlipidemia (principal); I10 Essential (primary) hypertension; K52.9 Noninfective gastroenteritis and colitis, unspecified; R19.5 Other fecal abnormalities
CPT/HCPCS: 80053; 82274; 83690; 84443; 85025; 87045; 87177; 87899